=== PATIENT | female | born 1945 | race Caucasian/White ===

== ENCOUNTER 2025-07-02 05:51 | Inpatient (IN) ==
--- NOTE | 2025-06-20 15:40 | PAT Medication Instructions ---
Medication Instructions Date of Service June 20, 2025 Home Medications Medication Instructions Recorded ipratropium bromide 42 mcg (0.06 2 spray intranasal TID PRN allergy 09/20/24 %) nasal spray symptoms #15 mL lorazepam 0.5 mg tablet (Ativan) 0.25 mg (1/2 x 0.5 mg) PO DAILY 10/02/24 PRN anxiety #10 tabs cholecalciferol (vitamin D3) 50 50 mcg PO DAILY #30 caps 03/10/25 mcg (2,000 unit) capsule gabapentin 300 mg capsule 300 mg PO TID #90 caps 05/20/25 buspirone 5 mg tablet 5 mg PO BID #60 tabs 05/26/25 duloxetine 60 mg capsule,delayed 60 mg PO QAM #90 caps 06/03/25 release alendronate 70 mg tablet 70 mg PO WK #12 tabs 06/05/25 primidone 50 mg tablet (Mysoline) 100 mg (2 x 50 mg) PO TID 90 days 06/09/25 #540 tabs acetaminophen 650 mg tablet,extended release (Tylenol Arthritis Pain) 650 mg PO UD PRN Pain methocarbamol 500 mg tablet 500 mg PO TID PRN muscle spasms nebivolol 2.5 mg tablet 2.5 mg PO UD PRN HEART RACING polyethylene glycol 3350 17 gram/dose oral powder (Miralax) 17 g PO UD Constipation ipratropium bromide 42 mcg (0.06 %) nasal spray 2 spray intranasal TID PRN allergy symptoms lorazepam 0.5 mg tablet (Ativan) 0.25 mg (1/2 x 0.5 mg) PO DAILY PRN anxiety cholecalciferol (vitamin D3) 50 mcg (2,000 unit) capsule 50 mcg PO DAILY gabapentin 300 mg capsule 300 mg PO TID buspirone 5 mg tablet 5 mg PO BID duloxetine 60 mg capsule,delayed release 60 mg PO QAM alendronate 70 mg tablet 70 mg PO WK primidone 50 mg tablet (Mysoline) 100 mg (2 x 50 mg) PO TID carbidopa 10 mg-levodopa 100 mg tablet 2 tab PO TID vitamin A 2,400 mcg capsule 2,400 mcg PO Q OTHER DAY vitamin E 100 unit tablet 100 unit PO DAILY Continue as directed alendronate 70 mg tablet 70 mg PO WK STOP taking 2 weeks before surgery (or as soon as possible if surgery is within 2 weeks) vitamin E 100 unit tablet 100 unit PO DAILY DO NOT take the morning of surgery polyethylene glycol 3350 17 gram/dose oral powder (Miralax) 17 g PO UD Constipation cholecalciferol (vitamin D3) 50 mcg (2,000 unit) capsule 50 mcg PO DAILY vitamin A 2,400 mcg capsule 2,400 mcg PO Q OTHER DAY polyethylene glycol 3350 17 gram/dose oral powder (Miralax) 17 g PO UD Constipation Take morning of surgery With a small sip of water, OTHERWISE NOTHING TO EAT OR DRINK AFTER MIDNIGHT: acetaminophen 650 mg tablet,extended release (Tylenol Arthritis Pain) 650 mg PO UD PRN Pain (if needed) methocarbamol 500 mg tablet 500 mg PO TID PRN muscle spasms (if needed) nebivolol 2.5 mg tablet 2.5 mg PO UD PRN HEART RACING (if needed) ipratropium bromide 42 mcg (0.06 %) nasal spray 2 spray intranasal TID PRN allergy symptoms (if needed) lorazepam 0.5 mg tablet (Ativan) 0.25 mg (1/2 x 0.5 mg) PO DAILY PRN anxiety (if needed) gabapentin 300 mg capsule 300 mg PO TID buspirone 5 mg tablet 5 mg PO BID duloxetine 60 mg capsule,delayed release 60 mg PO QAM primidone 50 mg tablet (Mysoline) 100 mg (2 x 50 mg) PO TID carbidopa 10 mg-levodopa 100 mg tablet 2 tab PO TID Take evening before surgery acetaminophen 650 mg tablet,extended release (Tylenol Arthritis Pain) 650 mg PO UD PRN Pain (if needed) methocarbamol 500 mg tablet 500 mg PO TID PRN muscle spasms (if needed) nebivolol 2.5 mg tablet 2.5 mg PO UD PRN HEART RACING (if needed) polyethylene glycol 3350 17 gram/dose oral powder (Miralax) 17 g PO UD Constipation (if needed) ipratropium bromide 42 mcg (0.06 %) nasal spray 2 spray intranasal TID PRN allergy symptoms (if needed) lorazepam 0.5 mg tablet (Ativan) 0.25 mg (1/2 x 0.5 mg) PO DAILY PRN anxiety (if needed) gabapentin 300 mg capsule 300 mg PO TID buspirone 5 mg tablet 5 mg PO BID primidone 50 mg tablet (Mysoline) 100 mg (2 x 50 mg) PO TID carbidopa 10 mg-levodopa 100 mg tablet 2 tab PO TID Other Notes If you have any questions please call us at [phone] or [phone] or [phone] or [phone]
--- NOTE | 2025-06-24 09:06 | Anesthesiology Consultation ---
Date of Service June 24, 2025 Assessment & Plan (1) Encounter for pre-operative examination: - Infectious disease screening: Per assessment on 06/24/25- No known recent infectious disease contacts or current infectious disease symptoms. - Cardiology visit (06/20/25): "Chest pain: Atypical in the past. No recent chest pain. No exertional symptoms. Unremarkable dobutamine stress echo in July 2023. Chest pain in the past occurred during significant emotional stress. No for their ischemic evaluation necessary at this time.. Near syncope: In the past, described orthostatic symptoms, but none recently. Recommended increasing hydration, liberalize sodium in her diet, and recommended thigh-high compression stockings. She has increased hydration but has not increased sodium consumption. No recent near syncopal episodes. Change po sitions slowly. Unremarkable event monitor in 2022.. Fatigue: Etiology uncertain but not likely cardiac in nature. Chronic. Defer to PCP.. Tachycardia/palpitations: Reported tachycardia during a panic attack as part of an MRI years ago. Very rare palpitations, and none recently. Event monitor also reassuring in July 2023. Has PRN beta-jerrica as prescribed by other providers in the past, but has not used since before last visit on 05/23/2024.. Preoperative cardiac assessment: Able to achieve at least 4 METS without cardiovascular symptoms. She is low cardiac risk for upcoming surgery. No further cardiac testing is necessary at this time." - Possible difficult intubation: D/t anatomy + cervical myelopathy - Patient acceptable risk for surgery pending surgeon-ordered PCP preop evaluation (TAMIKO, appt 06/27). Chart Review Chart Review: Patient seen in Pre Admission Testing Teaching & Discussion Pre-Anesthesia Teaching/Discussion Notes: Instructed NPO after midnight before surgery,except medications with 15 cc of water. Medication instructions provided according to the PAT guidelines. History Surgery Operation Date: 07/02/25 07:30 Proposed Procedures p C3-C4, C4-C5, C5-C6, C6-C7 Anterior Cervical Discectomy Fusion, with Spinal Cord Monitoring - Herb Reilly MD Height/Weight Height: 5 ft 1.5 in Weight: 66.1 kg Allergies Allergy/AdvReac Type Severity Reaction Status Date / Time ketorolac [From Toradol] Allergy Severe Swelling Verified 06/20/25 13:34 of Lip/Tongue/Throat tramadol Allergy Severe Anaphylaxis Verified 06/20/25 13:34 cephalexin [From Keflex] AdvReac Mild Diarrhea Verified 06/20/25 13:34 Medications Home Medications Medication Instructions Recorded Confirmed Last Taken acetaminophen 650 mg 650 mg PO UD PRN Pain 07/22/21 06/20/25 Unknown tablet,extended release (Tylenol Arthritis Pain) methocarbamol 500 mg tablet 500 mg PO TID PRN muscle spasms 05/02/24 06/20/25 Unknown nebivolol 2.5 mg tablet 2.5 mg PO UD PRN HEART RACING 05/02/24 06/20/25 Unknown polyethylene glycol 3350 17 17 g PO UD Constipation 08/22/24 06/20/25 Unknown gram/dose oral powder (Miralax) ipratropium bromide 42 mcg (0.06 2 spray intranasal TID PRN allergy 09/20/24 06/20/25 Unknown %) nasal spray symptoms #15 mL lorazepam 0.5 mg tablet (Ativan) 0.25 mg (1/2 x 0.5 mg) PO DAILY 10/02/24 06/20/25 Unknown PRN anxiety #10 tabs cholecalciferol (vitamin D3) 50 50 mcg PO DAILY #30 caps 03/10/25 06/20/25 Unknown mcg (2,000 unit) capsule gabapentin 300 mg capsule 300 mg PO TID #90 caps 05/20/25 06/20/25 Unknown buspirone 5 mg tablet 5 mg PO BID #60 tabs 05/26/25 06/20/25 Unknown duloxetine 60 mg capsule,delayed 60 mg PO QAM #90 caps 06/03/25 06/20/25 Unknown release alendronate 70 mg tablet 70 mg PO WK #12 tabs 06/05/25 06/20/25 Unknown primidone 50 mg tablet (Mysoline) 100 mg (2 x 50 mg) PO TID 90 days 06/09/25 06/20/25 Unknown #540 tabs carbidopa 10 mg-levodopa 100 mg 2 tab PO TID 06/20/25 06/20/25 Unknown tablet vitamin A 2,400 mcg capsule 2,400 mcg PO Q OTHER DAY 06/20/25 06/20/25 Unknown vitamin E 100 unit tablet 100 unit PO DAILY 06/20/25 06/20/25 Unknown Past Medical History Medical History Anxiety Cervical disc disease Cervical kyphosis Chronic pain Claustrophobia "Severe" Constipation miralax Dyslipidemia Essential tremor "Difficulty eating/ holding silverware" [facility] with [facility] Neuro/Demetris KELLEY Herniation of lumbar intervertebral disc with radiculopathy History of tachycardia Follows with [facility] [place] Hx of basal cell carcinoma Hx of diverticulitis of colon Hx of endometriosis Reason for hysterectomy Incontinence Urgency incontinence, likely mixed incontinence per [facility] Lymphocytic colitis "Stable" Near syncope Osteoporosis Scoliosis of lumbar region due to degenerative disease of spine in adult Severe pain into RLE Sinus drainage Spondylolisthesis, cervical region Exercise / Class Metabolic Activity III < 4 Walking/Shop/Light housework (one FS: No CP, + mild SOB) Past Family History Family History Aunt Myocardial infarction paternal Aunt Skin cancer Father COPD (chronic obstructive pulmonary disease) Alcohol abuse Mother Hypertension Glioblastoma Denies family history of Ovarian cancer Prostate cancer Breast cancer Colorectal cancer Past Surgical History Surgical History (Updated 06/24/25 @ 09:55 by Radha Hirsch) History of anesthesia reaction Difficulty waking up after hysterectomy No issues with other surgeries History of basal cell carcinoma (BCC) excision (2018) Left nostril History of lumpectomy (1961) Right (benign) Hx of bilateral cataract extraction Hx of cystoscopy (12/2024) Status post cholecystectomy (2010) Status post hysterectomy + unilateral oophorectomy/salpingectomy (Age 32) Status post tonsillectomy and adenoidectomy (1953) Status post unilateral salpingo-oophorectomy Age 21 Past Anesthesia History No Family Hx of Anesthesia Complications and Other (Difficulty waking up after hysterectomy. No issues with other surgeries.) History of PONV No Hx of Motion Sickness and History of PONV Social History Smoking cigarettes per day: Hx light cigarette use as teen Do You Dip or Chew Tobacco: No Hx Alcohol Use: Yes alcohol intake frequency: holidays/special occasions only Hx Substance Use: No substance use type: does not use Review of Systems Patient denies chest pain, shortness of breath, fever, chills, cough, wheezing. Physical Exam Vital Signs BP 102/58 P 87 TEMP 97.9 SP02 98%RA RESP 16 Physical Mildly decreased cervical extension range of motion. Full TMJ range of motion. TMD II finger breaths (small chin) Mallampati Score III (Small oral opening) Dentition: intact, + crowns Lungs: clear throughout to auscultation Cardiac: regular rate and rhythm, no murmurs noted Spine: normal Carotid arteries: negative bruit Extremities: no LE edema Lab Results Anesthesia Preop Results Results Anesthesia Widget: WBC 5.43 K/ul (4.8-10.8) 06/24/25 Hgb 12.9 g/dl (12.0-16.0) 06/24/25 Hct 37.5 % (37.0-47.0) 06/24/25 Plt 262 K/uL (130-400) 06/24/25 Na 141 mmol/L (136-145) 06/24/25 K 4.1 mmol/L (3.5-5.1) 06/24/25 Cl 101 mmol/L (98-107) 06/24/25 CO2 33 mmol/L (21-32) H 06/24/25 BUN 10 mg/dl (6-23) 06/24/25 Creat 0.65 mg/dl (0.6-1.2) 06/24/25 Glucose Level 83 mg/dl (70-99(Fasting)) 06/24/25 PT 10.3 Seconds (9.0-12.0) 06/24/25 PTT 27 Seconds (21-31) 06/24/25 INR 0.9 (0.9-1.1) 06/24/25 HA1c 5.2 % (4.5-5.6) 06/24/25 Blood Type O Positive 06/24/25 Antibody Screen NEGATIVE 06/24/25 Testing Electrocardiogram Date: 06/20/25 [facility] cardio visit 06/20/25: "ECG personally reviewed from 06/20/2025: Sinus rhythm 91 bpm." Chest X-Ray Date: 06/24/25 FINDINGS: Heart size and pulmonary vasculature are normal. No consolidation or pleural effusion. Stable scoliosis. IMPRESSION: No acute findings. Echocardiogram Date: 08/22/22 EF 60-65%. No regional wall motion abnormality. No LVH. No significant valvular abnormalities. RVSP 21 mmHg. Possible small pericardial effusion. No significant change compared to prior study 11/04/2021 per report. Stress Test Date: 08/21/23 Negative dobutamine stress echo/ECG for ischemia at 87% MPHR. Echo: EF 55 to 60%. No regional wall motion abnormality. Mild concentric LVH. No significant valvular abnormalities visualized, however valves not well-seen.
[2025-07-02] MEDS: LR 60ML/HR IV SCH (06:26)
[2025-07-02] MEDS: LR 15ML/HR IV SCH (06:26)
[2025-07-02] MEDS: ACETAMINOPHEN 500 MG TAB PO SCH (06:26)
[2025-07-02] MEDS ORDERED: PROPOFOL IV EMULSION 10 MG/ML 100 ML VIAL IV ONE ×4 (06:45→11:25)
[2025-07-02] MEDS ORDERED: ROCURONIUM BROMIDE 10 MG/ML 5 ML VIAL IV ONE (06:45)
[2025-07-02] MEDS ORDERED: MIDAZOLAM HCL 1 MG/ML 2ML VIAL ONE (06:45)
[2025-07-02] MEDS ORDERED: DEXAMETHASONE SOD INJ 4 MG/ML VIAL ONE (06:45)
[2025-07-02] MEDS ORDERED: SUGAMMADEX SODIUM 200 MG/2 ML VIAL IV ONE (06:45)
[2025-07-02] MEDS ORDERED: PROPOFOL IV EMULSION 10 MG/ML 20 ML VIAL IV ONE (06:45)
[2025-07-02] MEDS ORDERED: REMIFENTANIL HCL 1 MG VIAL IV ONE ×3 (06:45→11:02)
[2025-07-02] MEDS ORDERED: SUCCINYLCHOLINE CHLORIDE 20 MG/ML 10 ML VIAL IV ONE (06:45)
[2025-07-02] MEDS ORDERED: ONDANSETRON INJ 2 MG/ML 2 ML VIAL ONE ×2 (06:45→09:38)
[2025-07-02] MEDS ORDERED: KETAMINE HCL 10MG/ML SYR ONE (06:46)
[2025-07-02] MEDS ORDERED: ATROPINE SULFATE 0.1 MG/ML 10ML SYR IV PRN (07:11)
[2025-07-02] MEDS ORDERED: HYDROmorphone INJ 2 MG/ML SYR/VIAL IV PRN (07:11)
[2025-07-02] MEDS ORDERED: PROMETHAZINE HCL 6.25 MG in SODIUM CHLORIDE 0.9% 50 ML IV PRN (07:11)
[2025-07-02] MEDS ORDERED: ONDANSETRON INJ 2 MG/ML 2 ML VIAL IV PRN ×2 (07:11→15:08)
--- NOTE | 2025-07-02 07:15 | History & Physical Bridge Note ---
Date of Service July 02, 2025 History & Physical Bridge Note I have examined the patient, reviewed the History & Physical and in the interval since the performance of the History & Physical I have noted the following changes of clinical significance: no changes noted ACDF C3-4, 4-5, 5-6 and 6-7 for myelopathy
[2025-07-02] MEDS ORDERED: PHENYLEPHRINE 100MCG/ML 5ML SYR ONE (07:57)
[2025-07-02] MEDS ORDERED: ePHEDrine sulfate 50 MG/5 ML SYR ONE (07:57)
[2025-07-02] MEDS ORDERED: PHENYLEPHRINE HCL 10 MG/ML VIAL ONE (08:34)
[2025-07-02] MEDS: VANCOMYCIN HCL 1000MG/20ML VIAL ONE (08:38)
[2025-07-02] MEDS ORDERED: ceFAZolin 330 MG/ML 1 GM VIAL ONE (12:06)
[2025-07-02] MEDS: FLOSEAL HEMOSTATIC MATRIX 10ML TOP ONE (12:45)
--- NOTE | 2025-07-02 13:07 | Fluoroscopy Report ---
FL cervical 2-3V CLINICAL HISTORY: C3-C7 ACDF COMPARISON STUDY: None FLUOROSCOPY TIME: 57 seconds FLUOROSCOPY IMAGES: 8 EXPOSURE DOSE: 5 mGy FINDINGS: Fluoroscopy was provided for cervical spine fusion. IMPRESSION: Intraoperative fluoroscopy. ACT 112: Negative or not required by law. Electronically signed by: Baron Felton M.D. 07/02/2025 1:06 PM
--- NOTE | 2025-07-02 13:22 | Operative Report ---
[facility] Post Operative Report Pre & Post Diagnosis PREOPERATIVE DIAGNOSES: 1. Cervical myelopathy. 2. C3-C4 disk herniation. 3. C4-C5 disk herniation. 4. C5-C6 disk herniation. 5. C6-C7 disk herniation. 6. Cervical stenosis with cord compression. 7. Cervical Kyphosis POSTOPERATIVE DIAGNOSES: 1. Cervical myelopathy. 2. C3-C4 disk herniation. 3. C4-C5 disk herniation. 4. C5-C6 disk herniation. 5. C6-C7 disk herniation. 6. Cervical stenosis with cord compression. 7. Cervical Kyphosis I identified the patient and participated in the time-out.: Yes Procedure Operation Date: 07/02/25 07:30 1. C3-C4 anterior cervical decompression and fusion (99155). 2. C3-C4 interbody spacer placement with arthrodesis (21563). 4. C4-C5 anterior cervical decompression and fusion (18969). 5. C4-C5 interbody spacer placement with arthrodesis (80945). 6. C5-C6 anterior cervical decompression and fusion (62790). 7. C5-C6 interbody spacer placement with arthrodesis (81841). 8. C5-C6 anterior cervical decompression and fusion (58319). 9. C5-C6 interbody spacer placement with arthrodesis (61696). 10. C3, C4, C5, C6 and C7 anterior instrumentation (separate from interbody spacer) ([id number]). Implants: [employer] Spine Interbody and Plate Surgeon Herb Reilly MD Customs Opener Verifier Packer Raj Moody PA-C Estimated Blood Loss 50 Findings Consistent with Post-Op Diagnosis Specimens No Drains Saul Anesthesia Type General Complications none Disposition Disposition: Recovery Room Indications The patient has suffered from severe and unrelenting symptoms despite exhaustive conservative management. After discussing the benefits and risks of continued conservative management versus operative intervention, the patient elected to proceed with surgery. Description of Procedure Informed consent was obtained prior to the procedure. In the preoperative holding area, the patient's anterior neck was marked with a marking pen. The patient was taken to the operating room and anesthesia was initiated. The patient was placed supine on a regular operating room table. The neck was placed in a neutral position. All prominences were carefully padded. The anterior neck was prepped and draped in typical sterile fashion. Antibiotics were administe red. A timeout was performed. Neuromonitoring was utilized, including somatosensory evoked potentials, running electromyography and motor evoked potentials. These remained stable throughout the case. A #10 blade was used to incise the skin. Bovie electrocautery was used to maintain meticulous hemostasis as dissection was completed through the subcutaneous and platysma. The interval between the sternocleidomastoid and the strap musculature was identified and bluntly dissected. The carotid sheath was palpated, retracted laterally and protected. The anterior cervical spine was identified and exposed. A spinal needle was placed into the disc space to confirm the appropriate levels using x-ray. The longus colli were carefully elevated off the anterior spine laterally. Care was taken to not dissect too laterally so as to protect the sympathetic chains. Anterior osteophytes were removed. [place] pins were placed and a small amount of distraction was applied across the C3-C4 disc space. A total diskectomy along with bilateral foraminotomies were completed. The posterior longitudinal ligament was taken down. The central thecal sac and the bilateral C4 exiting nerve roots were confirmed to be completely decompressed. The endplates were prepared. An interbody spacer was selected, allograft preparation packed into the cage to encourage fusion, and the implanted. The [place] pins were moved and a small amount of distraction was applied across the C4-C5 disc space. A total diskectomy along with bilateral foraminotomies were completed. The posterior longitudinal ligament was taken down. The central thecal sac and the bilateral C5 exiting nerve roots were confirmed to be completely decompressed. The endplates were prepared. An interbody spacer was selected, packed with allograft and implanted. The [place] pins were moved and a small amount of distraction was applied across the C5-C6 disc space. A total diskectomy along with bilateral foraminotomies were completed. The posterior longitudinal ligament was taken down. The central thecal sac and the bilateral C6 exiting nerve roots were confirmed to be completely decompressed. The endplates were prepared. An interbody spacer was selected and implanted after being packed with allograft. The [place] pins were moved and a small amount of distraction was applied across the C6-C7 disc space. A total diskectomy along with bilateral foraminotomies were completed. The posterior longitudinal ligament was taken down. The central thecal sac and the bilateral C7 exiting nerve roots were confirmed to be completely decompressed. The endplates were prepared. An interbody spacer was selected and implanted after packing with allograft material. An anterior cervical plate was selected and implanted. Screws were placed into the bodies of C3, C4, C5, C6 and C7. The screws were locked into the plate. X-rays were taken and confirmed appropriate spacer and hardware position. The wound was thoroughly irrigated. Meticulous hemostasis was achieved. A single drain was placed deep. The platysma and subcutaneous were closed using braided, absorbable suture. The cutaneous was closed using a monofilament, absorbable suture. A sterile dressing was placed. At the end of the case, all instrument and sponge counts were correct. The patient was awakened from anesthesia without complication and taken to the PACU in stable condition. I attest to the content of the Intraoperative Record and any orders documented therein. Any exceptions are noted below.
[2025-07-02] MEDS: METOPROLOL TARTRATE 1 MG/ML VIAL IV PRN (14:07)
[2025-07-02] MEDS ORDERED: ONDANSETRON 4 MG OD TAB PO PRN (15:08)
[2025-07-02] MEDS ORDERED: IPRATROPIUM BROMIDE NASAL SPRAY 0.06% 15ML NAE PRN (15:08)
[2025-07-02] MEDS ORDERED: diphenhydrAMINE Capsule 25 MG CAP PO PRN (15:08)
[2025-07-02] MEDS ORDERED: NEBIVOLOL 2.5 MG PO PRN (15:08)
[2025-07-02] MEDS ORDERED: NALOXONE HCL 0.4 MG/1 ML VIAL/CARP IV PRN (15:08)
[2025-07-02] MEDS ORDERED: DO NOT ADMINISTER PNEUMOCOCCAL VACCINE PRN (15:08)
[2025-07-02] MEDS ORDERED: ACETAMINOPHEN 500 MG TAB PO PRN (15:08)
[2025-07-02] MEDS ORDERED: ALUMINUM/MAGNESIUM SUSP 30 ML UDC PO PRN (15:08)
[2025-07-02] MEDS ORDERED: dexAMETHasone 8 MG in SYRINGE 0 ML IV PRN (15:08)
[2025-07-02] MEDS ORDERED: SOD PHOSPHATE/SOD BIPHOSPHATE ENEMA 132 ML BTL PR PRN (15:08)
[2025-07-02] MEDS ORDERED: PROMETHAZINE 12.5 MG/50.5 ML BAG IV PRN (15:08)
[2025-07-02] MEDS ORDERED: DO NOT ADMINISTER FLU VACCINE PRN (15:08)
[2025-07-02] MEDS ORDERED: LORazepam 0.5 MG TAB PO PRN ×2 (15:08)
[2025-07-02] MEDS ORDERED: MAGNESIUM HYDROXIDE SUSP 30 ML UDC PO PRN (15:08)
[2025-07-02] MEDS ORDERED: RACEPINEPHRINE 2.25% NEBU SOLN 0.5 ML VIAL INH PRN (15:08)
[2025-07-02] MEDS: METOPROLOL TARTRATE 1 MG/ML VIAL IV ONE (15:10)
--- NOTE | 2025-07-02 15:18 | Anesthesiology Progress Note ---
Date of Service July 02, 2025 Anesthesia Post Procedure Vital Signs Vital Signs: Temp Pulse Pulse Resp BP BP Pulse Ox 07/02/25 15:13 37 C 07/02/25 15:08 37 C 07/02/25 15:08 07/02/25 15:02 106 H 14 134/83 96 07/02/25 14:30 36.6 C 100 H 14 122/80 96 07/02/25 14:20 105 H 16 126/71 94 07/02/25 14:10 104 H 14 142/79 H 97 07/02/25 14:07 122 H 148/80 H 07/02/25 14:00 122 H 16 148/80 H 97 07/02/25 13:50 122 H 18 150/82 H 96 07/02/25 13:40 122 H 14 143/82 H 98 07/02/25 13:30 36.6 C 120 H 14 141/83 H 98 07/02/25 06:16 36.5 C 88 20 129/74 96 Pulse Ox O2 Del Method O2 Del Method O2 Flow Rate O2 Flow Rate 07/02/25 15:13 07/02/25 15:08 07/02/25 15:08 96 Nasal Cannula 3 07/02/25 15:02 07/02/25 14:30 Nasal Cannula 3 07/02/25 14:20 Nasal Cannula 3 07/02/25 14:10 Nasal Cannula 3 07/02/25 14:07 07/02/25 14:00 Nasal Cannula 3 07/02/25 13:50 Oxymask 3 07/02/25 13:40 Oxymask 3 07/02/25 13:30 Oxymask 6 07/02/25 06:16 Room Air Pain Intensity Back: Pain Intensity: 0 Transfer of Care Handoff Completed per policy Notes Mental Status: alert / awake / arousable and participated in evaluation Patient Amnestic to Procedure: Yes Nausea / Vomiting: adequately controlled Pain: adequately controlled Airway Patency, RR, SpO2: stable & adequate BP & HR: stable & adequate Hydration State: stable & adequate Anesthetic Complications: no major complications apparent
[2025-07-02] MEDS: ACETAMINOPHEN 1,000 MG/100 ML VIAL IV PRN (15:59)
[2025-07-02] MEDS: dexAMETHasone 8 MG in SYRINGE 0 ML IV SCH (15:59)
[2025-07-02] MEDS: LACTATED RINGER'S 1,000 ML IV SCH (16:00)
[2025-07-02] MEDS: CARBIDOPA/LEVODOP 10/100MG TAB PO SCH (16:04)
[2025-07-02] MEDS: PRIMIDONE 50 MG TAB PO SCH (16:04)
[2025-07-02] MEDS: GABAPENTIN 300 MG CAP PO SCH (16:04)
--- NOTE | 2025-07-02 16:31 | Hospitalist Consultation ---
<Statement entered by Pricilla Portillo MD - 07/02/25 17:18> I have reviewed vital signs, chart notes, labs and imaging. I have personally seen, evaluated and examined the patient. I have also discussed the management of the patient with the AB and I agree with the exam findings documented in the history and physical examination and the documented assessment and plan unless otherwise stated below. I checked on her 30 min after hydromorphone 0.5 mg IV, she says neck/throat pain improved. No dyspnea. Denies history of cardiopulmonary disease or sleep apnea. at bedside. Discussed with ALONSO Arias - she had metoprolol 2.5 mg IV x 2 in PACU for sinus tachy in 130s Reviewed preop labs and EKG - normal EKG, labs essentitally normal Remains tachycardic HR 105 - reviewed tele and is sinus tachycardia. Not hypoxic On exam arouses easily to voice and oriented to situation, wearing hard cervical collar, drain on right side Lungs CTAB, no rrw, abd sntnd A/P: Postop extensive c-spine surgery postop sinus tachycardia, had general anesthesia -reviewed previous HR and she does run a little high, high 80s-90s in 2024 -addressing pain, there are a lot of fluid shifts with multilevel spine surgery and may need fluid boluses -not in fib/flutter -if persisting, monitor H/H, fluid status, check TSH/fT4, considered PE but this is too early Date of Consultation July 02, 2025 Assessment & Plan (1) Cervical myelopathy with cervical radiculopathy: (2) Chronic pain: (3) Dyslipidemia: (4) Vitamin D deficiency: (5) Osteoporosis: (6) Essential tremor: (7) Anxiety: (8) Lymphocytic colitis: Plan #S/P Multi-level cervical disc decompression and fusion, arthrodesis - Pain control, defer to primary service - Ordered APAP, Oxy, and Dilaudid for breakthrough - Early ambulation - Drain management per attending - IS for atelectasis/pna prevention - Recommend discontinuing hines once able to get up and ambulate #Chronic pain syndrome - Continue duloxetine #DLD - Continue #Vitamin D deficiency - Continue vitamin d supplementation #Osteoporosis - Continue fosamax weekly #Essential tremor - Continue sinemet and primidone #Anxiety - Continue buspirone and PRN lorazepam #Lymphocytic colitis - Continue miralax VTE ppx per primary service, anticipate preference for SCDs to reduce bleeding given postoperative status. Diet- advanced per attending, currently ordered CLD AM labs ordered. Above plan of care has been d/w Dr. Portillo who will also see and evaluate this patient. Thank you for allowing us to participate in the care of your patient. Will follow along. Supervising Physician Co-Signing Physician Notes Sinus tachycardia - confirmed on monitor -address pain, monitor H/H for significant postop anemia, probably has some B-jerrica withdrawal if she held AM meds - resume oral B-jerrica, may have significant fluid shifts -if persisting will check TSH/fT4, too soon for postop PE History of Present Illness Reason for Consultation: Medical management Requesting Physician: Dr. Reilly Attending Physician: Herb Reilly MD History of Present Illness Candie is a pleasant 79 yo F with a pmhx of chronic pain, Vit D deficiency, es sential tremor, DLD, anxiety, osteoporosis and lymphocytic colitis who presents for elective surgical intervention for cervical myelopathy and multi-level cervical disc herniation with Dr. Reilly. She was taken to the OR today where she underwent general anesthesia. Surgical procedure went well without any immediate complications. She has been transitioned into recovery and since transitioned back to her room in . She is currently resting in bed, accompanied by at bedside. Denies chest pain or dyspnea. No difficulty swallowing able to clear secretions. She reports back discomfort and uncontrolled neck pain that was refractory to IV APAP. Awaiting dose of Dilaudid. Denies n/v. No prior h/o problems with anesthesia. No other concerns reported at this time. Hospitalists were asked to see in consult for medical management. Allergies Allergy/AdvReac Type Severity Reaction Status Date / Time ketorolac [From Toradol] Allergy Severe Swelling Verified 07/02/25 06:11 of Lip/Tongue/Throat tramadol Allergy Severe Anaphylaxis Verified 07/02/25 06:11 cephalexin [From Keflex] AdvReac Mild Diarrhea Verified 07/02/25 06:11 Home Medications Medication Instructions Recorded Confirmed Type acetaminophen 650 mg 650 mg PO UD PRN Pain 07/22/21 07/02/25 History tablet,extended release (Tylenol Arthritis Pain) methocarbamol 500 mg tablet 500 mg PO TID PRN muscle spasms 05/02/24 07/02/25 History nebivolol 2.5 mg tablet 2.5 mg PO UD PRN HEART RACING 05/02/24 07/02/25 History polyethylene glycol 3350 17 17 g PO UD Constipation 08/22/24 07/02/25 History gram/dose oral powder (Miralax) ipratropium bromide 42 mcg (0.06 2 spray intranasal TID PRN allergy 09/20/24 07/02/25 Rx %) nasal spray symptoms #15 mL lorazepam 0.5 mg tablet (Ativan) 0.25 mg (1/2 x 0.5 mg) PO DAILY 10/02/24 07/02/25 Rx PRN anxiety #10 tabs cholecalciferol (vitamin D3) 50 50 mcg PO DAILY #30 caps 03/10/25 07/02/25 Rx mcg (2,000 unit) capsule gabapentin 300 mg capsule 300 mg PO TID #90 caps 05/20/25 07/02/25 Rx buspirone 5 mg tablet 5 mg PO BID #60 tabs 05/26/25 07/02/25 Rx duloxetine 60 mg capsule,delayed 60 mg PO QAM #90 caps 06/03/25 07/02/25 Rx release alendronate 70 mg tablet 70 mg PO WK #12 tabs 06/05/25 07/02/25 Rx primidone 50 mg tablet (Mysoline) 100 mg (2 x 50 mg) PO TID 90 days 06/09/25 07/02/25 Rx #540 tabs carbidopa 10 mg-levodopa 100 mg 2 tab PO TID 06/20/25 07/02/25 History tablet vitamin A 2,400 mcg capsule 2,400 mcg PO Q OTHER DAY 06/20/25 07/02/25 History vitamin E 100 unit tablet 100 unit PO DAILY 06/20/25 07/02/25 History Patient History Medical History Dystonic tremor "Difficulty eating/ holding silverware" Follows with [facility] Neuro/Demetris Calvillo PAC Herniation of lumbar intervertebral disc with radiculopathy Hx of endometriosis Reason for hysterectomy Dyslipidemia Chronic pain Cervical disc disease Sinus drainage Spondylolisthesis, cervical region Incontinence Urgency incontinence, likely mixed incontinence per [facility] urology Lymphocytic colitis "Stable" Cervical kyphosis Anxiety History of tachycardia Follows with [facility] cardio Scoliosis of lumbar region due to degenerative disease of spine in adult Severe pain into RLE Hx of basal cell carcinoma Osteoporosis Hx of diverticulitis of colon Near syncope Claustrophobia "Severe" Constipation miralax Surgical History Status post unilateral salpingo-oophorectomy Age 21 History of anesthesia reaction Difficulty waking up after hysterectomy No issues with other surgeries Hx of cystoscopy (12/2024) History of basal cell carcinoma (BCC) excision (2018) Left nostril Hx of bilateral cataract extraction History of lumpectomy (1961) Right (benign) Status post hysterectomy + unilateral oophorectomy/salpingectomy (Age 32) Status post cholecystectomy (2010) Status post tonsillectomy and adenoidectomy (1953) Family History Aunt Myocardial infarction paternal Aunt Skin cancer Father COPD (chronic obstructive pulmonary disease) Alcohol abuse Mother Hypertension Glioblastoma Denies family history of Ovarian cancer Prostate cancer Breast cancer Colorectal cancer Social History Smoking Status: Never smoker Tobacco Type: Cigarettes Age Started Using Tobacco: 18; Age Quit Using Tobacco: 19; packs per day: 0.1; Cigarettes Per Day: Hx light cigarette use as teen; Second Hand Exposure: No; Do You Dip or Chew Tobacco: No; Tobacco Cessation Education Requested by Patient: No Hx Alcohol Use: No Hx Substance Use: No Preferred Language: Portuguese Communication Ability: Effective Visual Impairment: No Limitations Hearing Ability: Normal 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 Beliefs That Will Affect Care: None marital status: Current Living Situation: Spouse current occupational status: retired Other Information That Helps Us Care for You: No Feels Safe at Home: Yes Safety Concerns: Feels Safe At This Time Childhood Exposure to Second-Hand Smoke: Yes Diet: regular Diet Comment: regular caffeine: No (soda) during the past year weight has: remained stable Dental Care, Regularly: Yes Physical Activity Frequency: 1-2 Times per Week Seatbelt Use: always Sunscreen Use: Yes Assistive Devices: None Review of Systems Review of Systems: All systems reviewed and are unremarkable except as noted in HPI and below. Denies fever, chills, fatigue, headache, nasal congestion, sore throat, cough, chest pain, shortness of breath, palpitations, orthopnea, PND, abdominal pain, n/v/d, constipation, dysuria, hematuria, frequency, easy bruising or bleeding, skin lesions or rashes. Physical Exam Physical Exam: GENERAL: 79 yo well nourished WF. A&O x3. No distress. NECK: anterior dressing applied, in cervical collar. Drain noted exiting incision site. LUNGS: Clear to auscultation bilaterally. No W/R/R. CARDIOVASCULAR: Mildly tachycardic. ABDOMEN: Soft, non-tender and non-distended. BS normoactive x 4 quad. : hines in place EXTREMITIES: No edema. Non-tender. Peripheral pulses +2/4. NEUROLOGIC: No focal neurological deficits. CN II-XII grossly intact. PSYCHIATRIC: Cooperative. Appropriate mood and affect. SKIN: Warm, dry, intact. No rashes or lesions. Results & Data Results & Data Vital Signs (Past 12 Hours) Vital Signs Temp Pulse Pulse Resp BP BP Pulse Ox 07/02/25 15:24 107 H 16 97 07/02/25 15:18 107 H 07/02/25 15:13 37 C 07/02/25 15:08 37 C 07/02/25 15:08 07/02/25 15:02 106 H 14 134/83 96 07/02/25 14:30 36.6 C 100 H 14 122/80 96 07/02/25 14:20 105 H 16 126/71 94 07/02/25 14:10 104 H 14 142/79 H 97 07/02/25 14:07 122 H 148/80 H 07/02/25 14:00 122 H 16 148/80 H 97 07/02/25 13:50 122 H 18 150/82 H 96 07/02/25 13:40 122 H 14 143/82 H 98 07/02/25 13:30 36.6 C 120 H 14 141/83 H 98 07/02/25 06:16 36.5 C 88 20 129/74 96 Pulse Ox O2 Del Method O2 Del Method O2 Flow Rate O2 Flow Rate 07/02/25 15:24 Nasal Cannula 2 07/02/25 15:18 07/02/25 15:13 07/02/25 15:08 07/02/25 15:08 96 Nasal Cannula 3 07/02/25 15:02 07/02/25 14:30 Nasal Cannula 3 07/02/25 14:20 Nasal Cannula 3 07/02/25 14:10 Nasal Cannula 3 07/02/25 14:07 07/02/25 14:00 Nasal Cannula 3 07/02/25 13:50 Oxymask 3 07/02/25 13:40 Oxymask 3 07/02/25 13:30 Oxymask 6 07/02/25 06:16 Room Air Laboratory Results Pre-op labs reviewed from 06/24/25, no leukocytosis, abnormalities on differential, Hgb 12.9, no electrolyte abnormalities on chemistry panel. Creat 0.65. Diagnostic Findings EKG - NSR, rate 91 bpm CXR - normal, no acute abnormalities PG Care Time/CCT Total # of Minutes Spent Total Time Spent with Patient: Total time spent is greater than 50% in coordination of care (as documented) at patient's floor/unit and/or counseling patient: 65 minutes Coding Level of Care Code 94642 IN/OBS CONSULT LVL 4,60M Diagnoses Cervical myelopathy with cervical radiculopathy G95.9; M54.12 Other chronic pain G89.29 Chronic pain type: other chronic pain Dyslipidemia E78.5 Vitamin D deficiency E55.9 Osteoporosis, unspecified osteoporosis type, unspecified pathological fracture presence M81.0 Osteoporosis type: unspecified Presence of current pathological fracture: unspecified Essential tremor G25.0 Anxiety F41.9 Lymphocytic colitis K52.832 (2) Chronic pain Chronic pain type: other chronic pain Qualified Code(s): G89.29 - Other chronic pain (5) Osteoporosis Osteoporosis type: unspecified Presence of current pathological fracture: unspecified Qualified Code(s): M81.0 - Age-related osteoporosis without current pathological fracture
[2025-07-02] MEDS: HYDROmorphone INJ 0.5 MG/0.5 ML SYR IV PRN (16:37)
[2025-07-02] MEDS: METOPROLOL SUCC 25MG EXT REL TAB PO SCH (18:24)
[2025-07-02] MEDS: busPIRone 5 MG TAB PO SCH (20:43)
[2025-07-02] MEDS: DOCUSATE SODIUM/SENNA 50/8.6MG TAB PO SCH (20:43)
[2025-07-02] MEDS: HYDROmorphone INJ 1 MG/ML SYRINGE IV PRN (20:44)
[2025-07-03 06:08] LABS: Hematocrit (blood only) 41.1 % (37.0-47.0); Hemoglobin 13.7 g/dl (12.0-16.0); Immature Granulocytes # (auto) 0.08 K/uL (0.01-0.20); Immature Granulocytes % (auto) 0.5 %; Mean Corpuscular Hemoglobin 33.7 pg (25.0-34.0); Mean Corpuscular Volume 101.0 fL (80.0-100.0); Platelet Count 287 K/uL (130-400); RDW Standard Deviation 49.3 fL (36.4-46.3); Red Blood Count 4.07 M/uL (4.20-5.40); White Blood Count 14.55 K/ul (4.8-10.8)
[2025-07-03 06:29] LABS: Anion Gap 9.0 (3-11); Blood Urea Nitrogen 10.0 mg/dl (6-23); Calcium 8.5 mg/dl (8.6-10.3); Carbon Dioxide 27.0 mmol/L (21-32); Chloride 104.0 mmol/L (98-107); Creatinine Clr Calc Pharmacy 66.7 ml/min; Glucose 131.0 mg/dl (70-99(Fasting)); Potassium 4.2 mmol/L (3.5-5.1); Sodium 140.0 mmol/L (136-145)
[2025-07-03] MEDS: POLYETHYLENE (MIRALAX) 17 GM PACK PO SCH (06:43)
[2025-07-03 06:45] LABS: Thyroid Stimulating Hormone 0.273 uIu/ml (0.300-4.500)
[2025-07-03] MEDS: FAMOTIDINE 20 MG TAB PO PRN (07:49)
[2025-07-03] MEDS: CHOLECALCIFEROL 25 MCG (1000 UNITS) TAB PO SCH (07:51)
--- NOTE | 2025-07-03 10:05 | XRay Report ---
XR cervical spine 2 or 3V CLINICAL HISTORY: post-op spine surgery COMPARISON STUDY: 07/09/2021 FINDINGS: Interval anterior plate screw fusion from C3 through C7 shows no hardware complication. Marcia gical drain is present. There is minimal expected prevertebral soft tissue thickening. No fracture or subluxation. IMPRESSION: Unremarkable postoperative exam. ACT 112: Negative or not required by law. Electronically signed by: Baron Felton M.D. 07/03/2025 10:03 AM
--- NOTE | 2025-07-03 10:46 | Orthopedic Progress Note ---
Date of Service July 03, 2025 Assessment & Plan (1) Cervical myelopathy with cervical radiculopathy: * Continue Current Treatment * Disposition: TBD, anticipate home * Daily treatment: Physical Therapy/ Occupational Therapy per protocol * Weight bearing status: WBAT b/l UE * Maintain cervical collar * Maintain DAVIDE drain, record output. Plan for removal POD 2 (tomorrow) * Continue to monitor for ABLA * Pain control * Office/hospital f/u 2 weeks for progress check and staple/suture removal * Discharge planning pending pain control, PT/OT clearance, medical clearance Subjective . Active Problems: S/p C3-7 ACDF POD 1 79 y/o female s/p C3-7 ACDF. Doing well overall, pain managed and improved function. Denies fever/chills, chest pain/SOB, nausea/vomiting. Otherwise no complaints. Review of Systems All systems reviewed & are unremarkable except as noted in HPI & below. Physical Exam .General: Alert and oriented, no acute distress * Constitutional: well-developed, well-nourished. * Respiratory: Normal respiratory effort, no distress * Gastrointestinal: No tenderness to palpation, no rigidity or guarding. * Skin: No rash or lesion. * Neurologic: Grossly normal * Musculoskeletal: Surgical dressing CDI. Cervical spine region without obvious deformity or overlying skin changes. Minimal tenderness of surgical region, otherwise no tenderness b/l UE. Neck ROM with minimal pain. AROM b/l shoulder flexion, elbow flexion/extension, wrist flexion/extension intact. Sensation intact radial/median/ulnar nerve distributions. Brisk capillary refill. Results & Data Results & Data Laboratory Results . Diagnostic Findings . PG Care Time/CCT Total # of Minutes Spent Total Time Spent with Patient: Total time spent is greater than 50% in coordination of care (as documented) at patient's floor/unit and/or counseling patient: Coding Level of Care Code 47894 Post Operative Follow-Up Diagnoses Cervical myelopathy with cervical radiculopathy G95.9; M54.12
--- NOTE | 2025-07-03 13:03 | Hospitalist Progress Note ---
Date of Service July 03, 2025 Assessment & Plan (1) Cervical myelopathy with cervical radiculopathy: (2) Chronic pain: (3) Dyslipidemia: (4) Vitamin D deficiency: (5) Osteoporosis: (6) Essential tremor: (7) Anxiety: (8) Lymphocytic colitis: Plan #S/P Multi-level cervical disc decompression and fusion, arthrodesis - Pain control, defer to primary service - Ordered APAP, Oxy, and Dilaudid for breakthrough - Early ambulation - Drain management per attending - IS for atelectasis/pna prevention - Recommend discontinuing hines once able to get up and ambulate #Chronic pain syndrome - Continue duloxetine #Vitamin D deficiency - Continue vitamin d supplementation #Osteoporosis - Continue fosamax weekly #Essential tremor - Continue sinemet and primidone #Anxiety - Continue buspirone and PRN lorazepam #Lymphocytic colitis - Continue miralax Mild tachycardia noted yesterday, concern for possible BB withdrawal, however, pt does not take the nebivolol at home. TSH/FT4 both suppressed, ?euthyroid sick syndrome. Will need repeated TFTs in 6 weeks. Tachycardia likely d/t post op status and pain. Was started on metoprolol by attending. Can continue as BP will tolerate. No further recommendations at this time. Will continue to follow. Admission and Anticipated Discharge Date Admission Date: July 02, 2025 Marichuy Schreiber was seen on rounds this afternoon. She is currently resting in bed, reportedly had a "rough night" in terms of pain control. Reports no pain at present but was sleeping just prior to my arrival. Denies cp or dyspnea. Review of Systems 2 Review of Systems: All systems reviewed and are unremarkable except as noted in HPI and below. Denies fever, chills, fatigue, headache, nasal congestion, sore throat, cough, chest pain, shortness of breath, palpitations, orthopnea, PND, abdominal pain, n/v/d, constipation, dysuria, hematuria, frequency, easy bruising or bleeding, skin lesions or rashes. Physical Exam 2 Physical Exam: GENERAL: 79 yo well nourished WF. A&O x3. No distress. NECK: anterior dressing applied, in cervical collar. Drain noted exiting incision site. LUNGS: Clear to auscultation bilaterally. No W/R/R. CARDIOVASCULAR: RRR : hines in place SKIN: Warm, dry, intact. No rashes or lesions. Results & Data Results & Data Vital Signs (Past 12 Hours) Vital Signs Temp Pulse Pulse Resp BP Pulse Ox O2 Del Method 07/03/25 11:22 36.5 C 84 22 139/81 90 Room Air 07/03/25 10:28 96 H 15 98 Nasal Cannula 07/03/25 08:00 94 H 07/03/25 08:00 Nasal Cannula 07/03/25 08:00 90 15 98 Nasal Cannula 07/03/25 07:53 36.4 C L 90 20 146/94 H 98 Nasal Cannula 07/03/25 02:40 86 18 94 Nasal Cannula 07/03/25 02:29 36.7 C 106 H 17 145/88 H 98 Nasal Cannula 07/03/25 01:12 93 H 10 L 93 07/03/25 01:00 95 H 13 93 O2 Flow Rate 07/03/25 11:22 07/03/25 10:28 3 07/03/25 08:00 07/03/25 08:00 2 07/03/25 08:00 3 07/03/25 07:53 3 07/03/25 02:40 2 07/03/25 02:29 6 07/03/25 01:12 07/03/25 01:00 Laboratory Results 07/03/25 05:05 07/03/25 05:05 PG Care Time/CCT Total # of Minutes Spent Total Time Spent with Patient: Total time spent is greater than 50% in coordination of care (as documented) at patient's floor/unit and/or counseling patient: 36 minutes Coding Level of Care Code 13589 SUB INP/OBS CARE 2/35MIN Diagnoses Cervical myelopathy with cervical radiculopathy G95.9; M54.12 Other chronic pain G89.29 Chronic pain type: other chronic pain Dyslipidemia E78.5 Vitamin D deficiency E55.9 Osteoporosis, unspecified osteoporosis type, unspecified pathological fracture presence M81.0 Osteoporosis type: unspecified Presence of current pathological fracture: unspecified Essential tremor G25.0 Anxiety F41.9 Lymphocytic colitis K52.832 (2) Chronic pain Chronic pain type: other chronic pain Qualified Code(s): G89.29 - Other chronic pain (5) Osteoporosis Osteoporosis type: unspecified Presence of current pathological fracture: u nspecified Qualified Code(s): M81.0 - Age-related osteoporosis without current pathological fracture
[2025-07-04 04:47] LABS: Hematocrit (blood only) 36.5 % (37.0-47.0); Hemoglobin 12.3 g/dl (12.0-16.0); Immature Granulocytes # (auto) 0.09 K/uL (0.01-0.20); Immature Granulocytes % (auto) 0.6 %; Mean Corpuscular Hemoglobin 33.6 pg (25.0-34.0); Mean Corpuscular Volume 99.7 fL (80.0-100.0); Platelet Count 272 K/uL (130-400); RDW Standard Deviation 48.7 fL (36.4-46.3); Red Blood Count 3.66 M/uL (4.20-5.40); White Blood Count 15.82 K/ul (4.8-10.8)
[2025-07-04 05:04] LABS: Anion Gap 7.0 (3-11); Blood Urea Nitrogen 15.0 mg/dl (6-23); Calcium 9.0 mg/dl (8.6-10.3); Carbon Dioxide 29.0 mmol/L (21-32); Chloride 101.0 mmol/L (98-107); Creatinine Clr Calc Pharmacy 83.7 ml/min; Glucose 98.0 mg/dl (70-99(Fasting)); Potassium 4.0 mmol/L (3.5-5.1); Sodium 137.0 mmol/L (136-145)
[2025-07-04] MEDS: ACETAMINOPHEN 1,000 MG/100 ML VIAL IV PRN (07:46)
[2025-07-04] MEDS: METHOCARBAMOL 500 MG TABLET PO PRN (08:56)
[2025-07-04 12:05] VITALS: BP 149/81; RESP 18; TEMP 97.7; O2SAT 93
--- NOTE | 2025-07-04 13:02 | Hospitalist Progress Note ---
Date of Service July 04, 2025 Assessment & Plan (1) Cervical myelopathy with cervical radiculopathy: (2) Chronic pain: (3) Dyslipidemia: (4) Vitamin D deficiency: (5) Osteoporosis: (6) Essential tremor: (7) Anxiety: (8) Lymphocytic colitis: Plan #S/P Multi-level cervical disc decompression and fusion, arthrodesis - Pain control, defer to primary service - Ordered APAP, Oxy, and Dilaudid for breakthrough - Early ambulation - Drain management per attending - IS for atelectasis/pna prevention - Recommend discontinuing hines to ensure pt able to void #Chronic pain syndrome - Continue duloxetine #Vitamin D deficiency - Continue vitamin d supplementation #Osteoporosis - Continue fosamax weekly #Essential tremor - Continue sinemet and primidone #Anxiety - Continue buspirone and PRN lorazepam #Lymphocytic colitis - Continue miralax Abnormal TFTs, recommend repeat in 6 weeks. Patient can resume all medications as she was taking at home without any changes. No further recommendations from medical team, thank you for allowing us to participate in the care of your patient, will sign off. Please contact with any questions. Plan d/w Dr. Portillo who is in agreement. Admission and Anticipated Discharge Date Admission Date: July 02, 2025 Marichuy Schreiber was seen today on rounds. She reports that her pain is controlled, able to sleep better last night. Feels she is able to have a BM today. Still has hines in place. Per RN, ortho PA rounded this AM with tentative plans to send patient home this afternoon. She denies cp or dyspnea. Minimal output from DAVIDE drain. Swallowing better. Tolerating dietary advancement. Review of Systems 2 Review of Systems: All systems reviewed and are unremarkable except as noted in HPI and below. Denies fever, chills, fatigue, headache, nasal congestion, sore throat, cough, chest pain, shortness of breath, palpitations, orthopnea, PND, abdominal pain, n/v/d, constipation, dysuria, hematuria, frequency, easy bruising or bleeding, skin lesions or rashes. Physical Exam 2 Physical Exam: GENERAL: 79 yo well nourished WF. A&O x3. No distress. NECK: anterior dressing applied, in cervical collar. Drain noted exiting incision site. LUNGS: Clear to auscultation bilaterally. No W/R/R. CARDIOVASCULAR: RRR : hines in place SKIN: Warm, dry, intact. No rashes or lesions. Results & Data Results & Data Vital Signs (Past 12 Hours) Vital Signs Temp Pulse Pulse Resp BP Pulse Ox O2 Del Method 07/04/25 11:00 36.5 C 89 18 149/81 H 93 Room Air 07/04/25 09:00 85 07/04/25 08:00 36.6 C 91 H 14 142/88 H 92 Room Air 07/04/25 07:23 88 18 94 Room Air 07/04/25 02:54 36.5 C 88 18 132/79 92 Nasal Cannula 07/04/25 02:16 84 12 93 Room Air O2 Flow Rate 07/04/25 11:00 07/04/25 09:00 07/04/25 08:00 07/04/25 07:23 07/04/25 02:54 2 07/04/25 02:16 Laboratory Results 07/04/25 04:24 07/04/25 04:24 PG Care Time/CCT Total # of Minutes Spent Total Time Spent with Patient: Total time spent is greater than 50% in coordination of care (as documented) at patient's floor/unit and/or counseling patient: 38 minutes Coding Level of Care Code 60321 SUB INP/OBS CARE 2/35MIN Diagnoses Cervical myelopathy with cervical radiculopathy G95.9; M54.12 Other chronic pain G89.29 Chronic pain type: other chronic pain Dyslipidemia E78.5 Vitamin D deficiency E55.9 Osteoporosis, unspecified osteoporosis type, unspecified pathological fracture presence M81.0 Osteoporosis type: unspecified Presence of current pathological fracture: unspecified Essential tremor G25.0 Anxiety F41.9 Lymphocytic colitis K52.832 (2) Chronic pain Chronic pain type: other chronic pain Qualified Code(s): G89.29 - Other chronic pain (5) Osteoporosis Osteoporosis type: unspecified Presence of current pathological fracture: u nspecified Qualified Code(s): M81.0 - Age-related osteoporosis without current pathological fracture
[2025-07-04 14:31] VITALS: PULSE 89
--- NOTE | 2025-07-04 15:59 | Orthopedic Progress Note ---
Date of Service July 04, 2025 Assessment & Plan (1) S/P cervical spinal fusion: Plan 79-year-old female POD#2 s/p C3-7 ACDF. She says the collar is uncomfortable, but she didn't know she isn't required to sleep in it. Plan: 1. DVT prophylaxis w/ regular ambulation/mobilization, SCDs. 2. Continue PT/OT. WBAT and AAT. 3. Dressing changed today. Drain removed, and new dressing placed. 4. Continue diet as tolerated. 5. Not having any dysphagia concerns. 6. Disposition - D/C to home today w/ assistance of . 7. F/u in approximately 2 weeks w/ Dr. Reilly for first outpatient post-op visit. Subjective Patient is POD#2 s/p C3-[address] Reilly on 07/02/2025. Patient says her pain is relatively well-controlled; she has mainly been using acetminophen as needed. Denies CP, SOB, N/V, UE paresthesia. She said therapy went well this morning and she is ready to go home today with her , who is a retired PT. Review of Systems All systems reviewed & are unremarkable except as noted in HPI & below. Physical Exam GENERAL: Speech and cognition is intact. Mood and affect is appropriate. Does not appear in acute distress. [place] collar in place and well-fitting. HEAD: Normocephalic; atraumatic. CHEST: Regular chest respiration and excursion. NEURO: Awake, alert, and oriented x 3. BACK: Dressing intact to neck; drain intact. No evidence of erythema, drainage, or abnormal warmth. Dressing not saturated. Drain removed, with no active drainage from the site. UPPER EXTREMITIES: C5 - C8 w/ intact sensation bilaterally. No deficits noted. NVI distally. LOWER EXTREMITIES: Sensation intact to light touch of the bilateral L2-S1 dermatomes. No deficits noted. NVI distally. Results & Data Results & Data Laboratory Results . Laboratory Results - last 24 hr 07/04/25 04:24 WBC 15.82 H RBC 3.66 L Hgb 12.3 Hct 36.5 L MCV 99.7 MCH 33.6 MCHC 33.7 RDW Std Deviation 48.7 H RDW Coeff of Gavi 13.2 Plt Count 272 MPV 9.0 L Immature Gran % (Auto) 0.6 Neut % (Auto) 82.0 Lymph % (Auto) 10.7 Bledsoe % (Auto) 6.6 Eos % (Auto) 0.0 Baso % (Auto) 0.1 Neut # (Auto) 12.96 H Lymph # (Auto) 1.70 Bledsoe # (Auto) 1.05 H Eos # (Auto) 0.00 Baso # (Auto) 0.02 Immature Gran # (Auto) 0.09 Sodium 137 Potassium 4.0 Chloride 101 Carbon Dioxide 29 Anion Gap 7 BUN 15 Creatinine 0.51 L Est Cr Clr Drug Dosing 83.7 eGFR 96.08 BUN/Creatinine Ratio 29.4 H Glucose 98 Calcium 9.0 Diagnostic Findings Cervical Spine X-Ray 07/03/25 07:00 XR cervical spine 2 or 3V CLINICAL HISTORY: post-op spine surgery COMPARISON STUDY: 07/09/2021 FINDINGS: Interval anterior plate screw fusion from C3 through C7 shows no hardware complication. Surgical drain is present. There is minimal expected prevertebral soft tissue thickening. No fracture or subluxation. IMPRESSION: Unremarkable postoperative exam. ACT 112: Negative or not required by law. Electronically signed by: Baron Felton M.D. 07/03/2025 10:03 AM PG Care Time/CCT Total # of Minutes Spent Total Time Spent with Patient: Total time spent is greater than 50% in coordination of care (as documented) at patient's floor/unit and/or counseling patient: Coding Level of Care Code 65382 Post Operative Follow-Up Diagnoses S/P cervical spinal fusion Z98.1
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
== END 2025-07-04 15:01 | disposition home or self-care (01) | DRG 473 ==
LOC: ASU 05:51 → 2E 07:15